=== PATIENT | female | born 1990 | race African-American/Black ===

== ENCOUNTER 2022-03-06 08:29 | Inpatient (IN) | payer BC, OTHER ==
[2022-03-06] MEDS ORDERED: SODIUM CHLORIDE 0.9% 1,000 ML IV STA ×2 (08:34→09:58)
[2022-03-06] MEDS ORDERED: NALOXONE 0.4 MG/ML 1 ML VIAL IVP STA ×3 (08:38→09:34)
[2022-03-06 08:40] LABS: Glucose,Whole Blood 92 mg/dL (75-99)
[2022-03-06 09:04] LABS: Basophils # (A) 0.1 k/uL (0-0.2); Basophils % (A) 1 %; Eosinophils # (A) 0.2 k/uL (0-0.7); Eosinophils % (A) 2 %; HCT 34.4 % (34.0-46.0); HGB 10.9 gm/dL (11.4-16.0); Lymphocytes # (A) 2.6 k/uL (1.0-4.8); Lymphocytes % (A) 36 %; MCH 31.9 pg (25.0-35.0); MCHC 31.7 g/dL (31.0-37.0); MCV 100.5 fL (80.0-100.0); Mean Platelet Volume 7.3; Monocytes # (A) 0.4 k/uL (0-1.0); Monocytes % (A) 5 %; Neutrophils # (A) 3.8 k/uL (1.3-7.7); Neutrophils % (A) 53 %; Platelet Count 421 k/uL (150-450); RBC 3.43 m/uL (3.80-5.40); RDW 12.4 % (11.5-15.5); WBC 7.2 k/uL (3.8-10.6)
[2022-03-06 09:06] LABS: INR 1.1 (<1.2); Prothrombin Time 11.9 sec (9.0-12.0)
[2022-03-06] MEDS ORDERED: NALOXONE 0.4 MG/ML 10 ML VIAL IVP STA ×3 (09:08→09:41)
--- NOTE | 2022-03-06 09:10 | CT ---
EXAMINATION TYPE: CT brain wo con DATE OF EXAM: 03/06/2022 COMPARISON: None HISTORY: overdose, altered mental status CT DLP: 1099.4 mGycm. Automated Exposure Control for Dose Reduction was Utilized. TECHNIQUE: CT scan of the head is performed without contrast. The ventricles, basal cisterns and sulci over convexities are within normal limits and there is no ma ss effect or shift of midline structures. No abnormal density is seen throughout the brain parenchyma and there is no acute intra or extra-axia l hemorrhage. The posterior fossa and the brainstem, fourth ventricle and cerebellar pontine angles appear grossly normal. The intraorbital contents appear normal and symmetric. There is a moderate mucous retention cyst left maxillary sinus indicating mild chronic sinusitis. The mastoid air cells are well aerated. The calvarium is intact. IMPRESSION: 1. No acute bleed or mass effect. 2. Chronic inflammatory change in the left maxillary sinus.
[2022-03-06 09:33] LABS: ALT 41 U/L (4-34); AST 24 U/L (14-36); Acetaminophen <10.0 ug/mL; African American GFR (CKD) >90 (>60 ml/min/1.73 sqM); Albumin 3.8 g/dL (3.5-5.0); Alcohol <10 mg/dL; Alkaline Phosphatase 52 U/L (38-126); Amylase 37 U/L (30-110); Anion Gap 8 mmol/L; Blood Urea Nitrogen 8 mg/dL (7-17); Calcium 9.2 mg/dL (8.4-10.2); Carbon Dioxide 27 mmol/L (22-30); Chloride 103 mmol/L (98-107); Glucose 87 mg/dL (74-99); Lipase 64 U/L (23-300); Non-African American GFR(CKD) >90 (>60 ml/min/1.73 sqM); Potassium 3.6 mmol/L (3.5-5.1); Salicylate <1.0 mg/dL; Sodium 138 mmol/L (137-145); Total Bilirubin 0.5 mg/dL (0.2-1.3); Total Protein 6.8 g/dL (6.3-8.2)
[2022-03-06 09:34] LABS: Appearance,Urine Clear (Clear); Bilirubin,Urine Negative (Negative); Blood,Urine Negative (Negative); Color,Urine Yellow; Glucose,Urine (UA) Negative (Negative); Ketones,Urine Negative (Negative); Leukocyte Esterase,Urine Negative (Negative); Nitrite,Urine Negative (Negative); PH, Urine 5.5 (5.0-8.0); Protein,Urine Negative (Negative); Specific Gravity,Urine 1.009 (1.001-1.035); Urobilinogen,Urine <2.0 mg/dL (<2.0)
--- NOTE | 2022-03-06 09:34 | XR ---
EXAMINATION TYPE: XR chest 1V portable DATE OF EXAM: 03/06/2022 COMPARISON: NONE HISTORY: Cough TECHNIQUE: Single frontal view of the chest is obtained. FINDINGS: There is no focal air space opacity, pleural effusion, or pneumothorax seen. The cardiac silhouette size is within normal limits. The osseous structures are intact. IMPRESSION: No acute process.
--- NOTE | 2022-03-06 09:37 | ED ---
General Adult HPI - General Chief complaint: Overdose Stated complaint: Overdose Time Seen by Provider: 03/06/22 08:34 Source: family, EMS, RN notes reviewed, old records reviewed Mode of arrival: EMS - History of Present Illness Initial comments: Patient is a 31-year-old female who presents to the emergency Department following an overdose. Patient was found unresponsive by family members and they called EMS. Sometime in the last 12 hours, as the patient has been alone over that period of time, she is taking 20 tabs of [place]-10's and 2 Xanax bars. Patient does have a history of drug abuse as well as history of suicide attempt in 2013 per family. She was prescribed the [place] due to recent right knee surgery. Unknown exact ingestion time. Patient is unable to provide history. Was prepped found sleepy, and relatively unresponsive snoring at home. EMS provided her with a total of 4 mg of IV Narcan with some improvement in mentation. Since her further evaluation at this time. - Related Data Allergies Allergy/AdvReac Type Severity Reaction Status Date / Time Unable to Assess Allergy Verified 03/06/22 08:59 Review of Systems ROS Statement: Those systems with pertinent positive or pertinent negative responses have been documented in the HPI. ROS Other: All systems not noted in ROS Statement are negative. General Exam - General Exam Comments Initial Comments: General: Patient is actively snoring, sleeping. No respiratory depression. Not awake. HEAD: Normal with no signs of head trauma. EYES: Pupils are pinpoint to 1 mm bilaterally with minimal reactivity to light. ENT: Hearing grossly intact, normal oropharynx. Protecting airway. RESPIRATORY: Clear breath sounds bilaterally. No wheezes, rales, or rhonchi. No respiratory distress. No hypoxia. C/V: Regular rate and rhythm. S1 and S2 auscultated, no edema, peripheral pulses 2+ and intact throughout ABD: Abd is soft, nontender, nondistended EXT: Status post right knee surgery with immobilizer in place. SKIN: No rashes or lesions observed on exposed skin. NEURO: Not alert or oriented. Sleepy. GCS of 9-10. Difficult to obtain secondary to patient's overdose. Course Vital Signs 03/06/22 03/06/22 03/06/22 08:31 08:34 08:39 Temperature 97.5 F L Pulse Rate 82 80 Respiratory 12 14 16 Rate Blood Pressure 118/86 118/86 O2 Sat by Pulse 100 Oximetry 03/06/22 03/06/22 03/06/22 09:00 09:15 09:30 Temperature Pulse Rate 89 Respiratory 16 18 Rate Blood Pressure 112/96 105/77 O2 Sat by Pulse Oximetry 03/06/22 03/06/22 03/06/22 09:45 10:00 10:30 Temperature Pulse Rate 89 89 Respiratory 18 16 16 Rate Blood Pressure 103/75 96/70 O2 Sat by Pulse 100 100 Oximetry 03/06/22 10:49 Temperature Pulse Rate Respiratory 18 Rate Blood Pressure O2 Sat by Pulse Oximetry Medical Decision Making - Medical Decision Making Patient was evaluated in the trauma bay. Based on the patient's presentation and physical exam, I believe she is sleeping likely secondary to her mixed overdose of benzodiazepines as well as opiate medication. Tylenol ingestion based on 20 tablets of [place] 10 does not exceed the toxic level the 150 mg/kg. However we will obtain a toxicology workup. Patient will be placed on suicide precautions with a sitter. CT brain will be obtained in addition to the urine studies. EKG will also be obtained. She'll be given a 1 L fluid bolus as well as started on a maintenance infusion. She'll be immediately dosed 2 mg of Narcan. There is minimal improvement in her second dose of 2 millions of IV Narcan was administered. Mental status remained GCS of 9-10, however patient was never apneic. Has adequate respirations. Remainder the vital signs are within normal limits and stable. We'll contact toxicology for further recommendations. Toxicology recommended increasing Narcan administration doses. Therefore patient was in this report millions at once with some improvement in terms of movement spontaneously. She'll be dosed an additional 6 mg to see if there is any further improvement. Lavatory studies returned and were remarkable for a negative Tylenol level. Alcohol level is negative. Salicylate level is negative. ALT is mildly elevated to 41. Blood glucose is 92. Patient is mildly anemic with a hemoglobin of 10.9. CT brain showed no acute intracranial process. Chest x-ray reveals no acute cardiopulmonary process. EKG shows no signs of acute ischemia with normal values for intervals. UDS is positive for opiates as well as benzodiazepines. Psychiatry was consulted due to the patient's history of suicide attempt to evaluate the patient upon awakening. Unknown if this was a suicide attempt. Suicide precautions were ordered. Sitter was ordered as well. On reevaluation, following multiple escalation doses of Narcan, she seemed to respond no different from 4 mg to 6. She becomes slightly more awake. The GCS remains approximately 10. This is likely poly-factorial, from benzodiazepines as well as opiates. We will start the patient on a Narcan drip and I spoke with the ICU attending, Dr. Chakraborty who accepted the patient ICU. Patient will be started on 3/4th dose of the dose to ellicit an improved response, which is 3mg/hr. vital signs remained stable and within normal limits throughout her stay. Oxygenation remains adequate. Patient never becomes apneic. I did speak with the patient's family member who is a employee at our hospital, who was in agreement with the admission and the plan. I spoke with the admitting team, city call Dr. Moya who accepted the patient. Patient was therefore admitted in serious condition.Patient continues to protect her airway throughout, never becomes apneic, never becomes hypoxic. Throughout her stay in the emergency department. - Lab Data Result diagrams: 03/06/22 08:47 03/06/22 08:47 Lab Results 03/06/22 03/06/22 03/06/22 Range/Units 08:32 08:47 08:47 WBC 7.2 (3.8-10.6) k/uL RBC 3.43 L (3.80-5.40) m/uL Hgb 10.9 L (11.4-16.0) gm/dL Hct 34.4 (34.0-46.0) % MCV 100.5 H (80.0-100.0) fL MCH 31.9 (25.0-35.0) pg MCHC 31.7 (31.0-37.0) g/dL RDW 12.4 (11.5-15.5) % Plt Count 421 (150-450) k/uL MPV 7.3 Neutrophils % 53 % Lymphocytes % 36 % Monocytes % 5 % Eosinophils % 2 % Basophils % 1 % Neutrophils # 3.8 (1.3-7.7) k/uL Lymphocytes # 2.6 (1.0-4.8) k/uL Monocytes # 0.4 (0-1.0) k/uL Eosinophils # 0.2 (0-0.7) k/uL Basophils # 0.1 (0-0.2) k/uL PT 11.9 (9.0-12.0) sec INR 1.1 (<1.2) Sodium (137-145) mmol/L Potassium (3.5-5.1) mmol/L Chloride (98-107) mmol/L Carbon Dioxide (22-30) mmol/L Anion Gap mmol/L BUN (7-17) mg/dL Creatinine (0.52-1.04) mg/dL Est GFR (CKD-EPI)AfAm (>60 ml/min/1.73 sqM) Est GFR (CKD-EPI)NonAf (>60 ml/min/1.73 sqM) Glucose (74-99) mg/dL POC Glucose (mg/dL) 92 (75-99) mg/dL POC Glu Professor Of Finance ID Jalen Elmore Plasma Lactic Acid Forrest (0.7-2.0) mmol/L Calcium (8.4-10.2) mg/dL Total Bilirubin (0.2-1.3) mg/dL AST (14-36) U/L ALT (4-34) U/L Alkaline Phosphatase (38-126) U/L Troponin I (0.000-0.034) ng/mL Total Protein (6.3-8.2) g/dL Albumin (3.5-5.0) g/dL Amylase (30-110) U/L Lipase (23-300) U/L Urine Color Urine Appearance (Clear) Urine pH (5.0-8.0) Ur Specific Platter (1.001-1.035) Urine Protein (Negative) Urine Glucose (UA) (Negative) Urine Ketones (Negative) Urine Blood (Negative) Urine Nitrite (Negative) Urine Bilirubin (Negative) Urine Urobilinogen (<2.0) mg/dL Ur Leukocyte Esterase (Negative) Urine HCG, Qual (Not Detectd) Salicylates mg/dL Urine Opiates Screen (NotDetected) Ur Oxycodone Screen (NotDetected) Urine Methadone Screen (NotDetected) Ur Propoxyphene Screen (NotDetected) Acetaminophen ug/mL Ur Barbiturates Screen (NotDetected) U Tricyclic Antidepress (NotDetected) Ur Phencyclidine Scrn (NotDetected) Ur Amphetamines Screen (NotDetected) U Methamphetamines Scrn (NotDetected) U Benzodiazepines Scrn (NotDetected) Urine Cocaine Screen (NotDetected) U Marijuana (THC) Screen (NotDetected) Serum Alcohol mg/dL 03/06/22 03/06/22 03/06/22 Range/Units 08:47 08:47 08:47 WBC (3.8-10.6) k/uL RBC (3.80-5.40) m/uL Hgb (11.4-16.0) gm/dL Hct (34.0-46.0) % MCV (80.0-100.0) fL MCH (25.0-35.0) pg MCHC (31.0-37.0) g/dL RDW (11.5-15.5) % Plt Count (150-450) k/uL MPV Neutrophils % % Lymphocytes % % Monocytes % % Eosinophils % % Basophils % % Neutrophils # (1.3-7.7) k/uL Lymphocytes # (1.0-4.8) k/uL Monocytes # (0-1.0) k/uL Eosinophils # (0-0.7) k/uL Basophils # (0-0.2) k/uL PT (9.0-12.0) sec INR (<1.2) Sodium 138 (137-145) mmol/L Potassium 3.6 (3.5-5.1) mmol/L Chloride 103 (98-107) mmol/L Carbon Dioxide 27 (22-30) mmol/L Anion Gap 8 mmol/L BUN 8 (7-17) mg/dL Creatinine 0.74 (0.52-1.04) mg/dL Est GFR (CKD-EPI)AfAm >90 (>60 ml/min/1.73 sqM) Est GFR (CKD-EPI)NonAf >90 (>60 ml/min/1.73 sqM) Glucose 87 (74-99) mg/dL POC Glucose (mg/dL) (75-99) mg/dL POC Glu Professor Of Finance ID Plasma Lactic Acid Forrest (0.7-2.0) mmol/L Calcium 9.2 (8.4-10.2) mg/dL Total Bilirubin 0.5 (0.2-1.3) mg/dL AST 24 (14-36) U/L ALT 41 H (4-34) U/L Alkaline Phosphatase 52 (38-126) U/L Troponin I (0.000-0.034) ng/mL Total Protein 6.8 (6.3-8.2) g/dL Albumin 3.8 (3.5-5.0) g/dL Amylase 37 (30-110) U/L Lipase 64 (23-300) U/L Urine Color Urine Appearance (Clear) Urine pH (5.0-8.0) Ur Specific Platter (1.001-1.035) Urine Protein (Negative) Urine Glucose (UA) (Negative) Urine Ketones (Negative) Urine Blood (Negative) Urine Nitrite (Negative) Urine Bilirubin (Negative) Urine Urobilinogen (<2.0) mg/dL Ur Leukocyte Esterase (Negative) Urine HCG, Qual Not Detected (Not Detectd) Salicylates <1.0 mg/dL Urine Opiates Screen Detected H (NotDetected) Ur Oxycodone Screen Not Detected (NotDetected) Urine Methadone Screen Not Detected (NotDetected) Ur Propoxyphene Screen Not Detected (NotDetected) Acetaminophen <10.0 ug/mL Ur Barbiturates Screen Not Detected (NotDetected) U Tricyclic Antidepress Not Detected (NotDetected) Ur Phencyclidine Scrn Not Detected (NotDetected) Ur Amphetamines Screen Not Detected (NotDetected) U Methamphetamines Scrn Not Detected (NotDetected) U Benzodiazepines Scrn Detected H (NotDetected) Urine Cocaine Screen Not Detected (NotDetected) U Marijuana (THC) Screen Not Detected (NotDetected) Serum Alcohol <10 mg/dL 03/06/22 03/06/22 03/06/22 Range/Units 08:47 08:47 08:47 WBC (3.8-10.6) k/uL RBC (3.80-5.40) m/uL Hgb (11.4-16.0) gm/dL Hct (34.0-46.0) % MCV (80.0-100.0) fL MCH (25.0-35.0) pg MCHC (31.0-37.0) g/dL RDW (11.5-15.5) % Plt Count (150-450) k/uL MPV Neutrophils % % Lymphocytes % % Monocytes % % Eosinophils % % Basophils % % Neutrophils # (1.3-7.7) k/uL Lymphocytes # (1.0-4.8) k/uL Monocytes # (0-1.0) k/uL Eosinophils # (0-0.7) k/uL Basophils # (0-0.2) k/uL PT (9.0-12.0) sec INR (<1.2) Sodium (137-145) mmol/L Potassium (3.5-5.1) mmol/L Chloride (98-107) mmol/L Carbon Dioxide (22-30) mmol/L Anion Gap mmol/L BUN (7-17) mg/dL Creatinine (0.52-1.04) mg/dL Est GFR (CKD-EPI)AfAm (>60 ml/min/1.73 sqM) Est GFR (CKD-EPI)NonAf (>60 ml/min/1.73 sqM) Glucose (74-99) mg/dL POC Glucose (mg/dL) (75-99) mg/dL POC Glu Professor Of Finance ID Plasma Lactic Acid Forrest 1.3 (0.7-2.0) mmol/L Calcium (8.4-10.2) mg/dL Total Bilirubin (0.2-1.3) mg/dL AST (14-36) U/L ALT (4-34) U/L Alkaline Phosphatase (38-126) U/L Troponin I <0.012 (0.000-0.034) ng/mL Total Protein (6.3-8.2) g/dL Albumin (3.5-5.0) g/dL Amylase (30-110) U/L Lipase (23-300) U/L Urine Color Yellow Urine Appearance Clear (Clear) Urine pH 5.5 (5.0-8.0) Ur Specific Platter 1.009 (1.001-1.035) Urine Protein Negative (Negative) Urine Glucose (UA) Negative (Negative) Urine Ketones Negative (Negative) Urine Blood Negative (Negative) Urine Nitrite Negative (Negative) Urine Bilirubin Negative (Negative) Urine Urobilinogen <2.0 (<2.0) mg/dL Ur Leukocyte Esterase Negative (Negative) Urine HCG, Qual (Not Detectd) Salicylates mg/dL Urine Opiates Screen (NotDetected) Ur Oxycodone Screen (NotDetected) Urine Methadone Screen (NotDetected) Ur Propoxyphene Screen (NotDetected) Acetaminophen ug/mL Ur Barbiturates Screen (NotDetected) U Tricyclic Antidepress (NotDetected) Ur Phencyclidine Scrn (NotDetected) Ur Amphetamines Screen (NotDetected) U Methamphetamines Scrn (NotDetected) U Benzodiazepines Scrn (NotDetected) Urine Cocaine Screen (NotDetected) U Marijuana (THC) Screen (NotDetected) Serum Alcohol mg/dL - EKG Data -: EKG Interpreted by Me EKG Comments: 12-lead Electrocardiogram Interpretation Note EKG was reviewed and interpreted by myself. 12-lead ECG performed at 0830 is interpreted by me as revealing incomplete right bundle branch block, otherwise normal sinus rhythm at a rate of 80 beats per minute. [place] is normal. MS interval is 139 ms, QRS duration is 90 ms, QTc is 429 ms.. There were no ST or T wave abnormalities to suggest myocardial ischemia or injury. R wave progression across the precordium was satisfactory. By my interpretation this EKG is non-diagnostic for acute ischemia. Critical Care Time Critical Care Time: Yes Total Critical Care Time: 35 Critical Care Time: Upon my evaluation, this patient had a high probability of imminent or life- threatening deterioration due to overdose, altered mental status, which required my direct attention, intervention, and personal management. I have personally provided 35 minutes of critical care time exclusive of time spent on separately billable procedures. Time includes review of laboratory data, radiology results, discussion with consultants, and monitoring for potential decompensation. Interventions were performed as documented in my note. Disposition Clinical Impression: Opiate overdose, Benzodiazepine overdose, History of suicide attempt Disposition: ADMITTED IP TO THIS HOSP Condition: Serious Time of Disposition: 10:30
[2022-03-06 09:48] LABS: Amphetamine Screen,Urine Not Detected (NotDetected); Barbiturate Screen,Urine Not Detected (NotDetected); Benzodiazepines Screen,Urine Detected (NotDetected); Cocaine Screen,Urine Not Detected (NotDetected); Methadone Screen, Urine Not Detected (NotDetected); Opiate Screen,Urine Detected (NotDetected); Oxycodone Screen, Urine Not Detected (NotDetected); Phencyclidine Screen,Urine Not Detected (NotDetected); Tricyclic Antidepressant,Urine Not Detected (NotDetected); Urn Cannabinoid Scrn Not Detected (NotDetected)
[2022-03-06] MEDS ORDERED: NALOXONE 0.4 MG/ML 1 ML VIAL IV PRN (10:30)
[2022-03-06] MEDS: NALOXONE (MDV) 2 MG in SODIUM CHLORIDE 0.9% 250 ML IV SCH ×19 (10:49→23:35)
--- NOTE | 2022-03-06 13:18 | P.CNPUL ---
History of Present Illness Consult date: 03/06/22 Requesting physician: Deacon Moya Reason for consult: other (Multiple drugs overdose) Chief complaint: Drug overdose History of present illness: This is a 31 -year-old female, recent history of surgery on her right knee/patella done in a different institution. Patient had prescription for No rco and Xanax to take for pain control after her surgery. Patient is known to have history of depression, and she had previous suicidal attempts. Apparently the patient was found by family members unresponsive, EMS was notified, patient was brought into the ER, apparently she took about 20 tablets of [place] 10/325, and she took few Xanax pills. Patient herself could not provide any history, she seems to be quite sleepy, but she is arousable, but does not volunteer any information. Patient received Narcan given to her by EMS for milligrams IV push, and there was improvement in her mentation. In the ER the patient received few doses of Narcan, finally the patient was placed on a Narcan drip, and transferred to the ICU. Again no history could be obtained from the patient. Patient is sedated, but arousable and does not volunteer and does not cooperate after being aroused, she seems to be bothered by waking her up. Apparently the patient had previous history of suicidal attempt in 2013. Her drug screen was positive for opiates, benzodiazepines, and negative for everything else including acetaminophen, and salicylate. Review of Systems ROS unobtainable: due to mental status Medications and Allergies Home Medications Medication Instructions Recorded Confirmed Type Aspirin 325 mg PO DAILY 03/06/22 03/06/22 History HYDROcodone/APAP 10-325MG [[place] 1 tab PO Q4H PRN 03/06/22 03/06/22 History 10-325] Ibuprofen 800 mg PO Q8H 03/06/22 03/06/22 History Ondansetron [Zofran ODT] 4 mg PO Q8HR 03/06/22 03/06/22 History Sennosides/Docusate Sodium [Senna 1 each PO DAILY 03/06/22 03/06/22 History Plus 8.6-50 mg Tablet] metroNIDAZOLE [Flagyl] 500 mg PO BID 03/06/22 03/06/22 History Allergies Allergy/AdvReac Type Severity Reaction Status Date / Time No Known Allergies Allergy Verified 03/06/22 13:00 Physical Exam Vitals: Vital Signs Temp Pulse Resp BP Pulse Ox 03/06/22 13:00 76 11 L 109/76 100 03/06/22 12:51 14 03/06/22 12:30 87 13 102/75 99 03/06/22 12:12 13 03/06/22 12:11 12 03/06/22 12:00 85 14 100/78 99 03/06/22 11:30 80 19 107/82 99 03/06/22 11:00 97.8 F 85 13 94/74 100 03/06/22 10:49 18 03/06/22 10:30 89 16 96/70 100 03/06/22 10:00 89 16 103/75 100 03/06/22 09:45 18 03/06/22 09:30 105/77 03/06/22 09:15 18 03/06/22 09:00 89 16 112/96 03/06/22 08:39 80 16 118/86 03/06/22 08:34 14 03/06/22 08:31 97.5 F L 82 12 118/86 100 Intake and Output 03/05/22 03/06/22 03/06/22 22:59 06:59 14:59 Intake Total 600.00 Output Total 1875 Balance -1275.00 Intake: Intake, IV Titration 600.00 Amount Naloxone (Mdv) 2 mg In 500.00 Sodium Chloride 0.9% 250 ml @ 3 MG/HR 375 mls/hr IV .Q40M MAISHA Rx#: [id number] Sodium Chloride 0.9% 1, 100 000 ml @ 100 mls/hr IV . Q10H STA Rx#:[id number] Output: Urine 1875 Uretheral (Fowler) 800 Other: Voiding Method Indwelling Catheter Weight 58.967 kg Physical Exam General: sleeping. No respiratory depression. Arousable with any painful stimuli. HEAD: Normal with no signs of head trauma. EYES: Pupils are pinpoint to 1 mm bilaterally with minimal reactivity to light. ENT: Hearing grossly intact, normal oropharynx. Protecting airway. RESPIRATORY: Symmetrical chest expansion, clear throughout no crackles or rhonchi or wheezes. C/V: Normal S1 and S2, no S3 gallop. ABD: Soft nontender no megaly no rebound no guarding. EXT: Right knee immobilizer is noted, apparently patient had recent patellar surgery. SKIN: No rashes. NEURO: Not alert or oriented. Sleepy. GCS of 9-10. Difficult to obtain secondary to patient's overdose. Results - Laboratory Findings CBC and BMP: 03/06/22 08:47 03/06/22 08:47 PT/INR, D-dimer PT 11.9 sec (9.0-12.0) 03/06/22 08:47 INR 1.1 (<1.2) 03/06/22 08:47 Abnormal lab findings: Abnormal Labs 03/06/22 03/06/22 03/06/22 08:47 08:47 08:47 RBC 3.43 L Hgb 10.9 L MCV 100.5 H ALT 41 H Urine Opiates Screen Detected H U Benzodiazepines Scrn Detected H - Diagnostic Findings Chest x-ray: image reviewed (Chest x-ray showed no evidence of active disease. No evidence of pneumonia.) Additional studies: CT of the brain showed chronic inflammatory change and left maxillary sinus otherwise negative Assessment and Plan Assessment: Impression: Multiple drug overdose, patient overdosed on hydrocodone and on Xanax. Drug screen positive for opiates and benzodiazepine. History of depression and suicidal attempts. Recommendation: Admit to ICU Monitor closely and continue Narcan drip for now. Psychiatric consultation. Close monitoring of her pulmonary status, if patient shows any signs of deteri oration, recommend intubating the patient. We'll continue to follow. Time with Patient: Greater than 30
--- NOTE | 2022-03-06 16:57 | P.HPIM ---
History of Present Illness H&P Date: 03/06/22 Chief Complaint: Drug overdose 31-year-old female who presents to the emergency Department following an overdose. Patient was found unresponsive by family members and they called EMS. Patient unable to provide any history so all of the history is obtained from the chart Sometime in the last 12 hours, as the patient has been alone over that period of time, she is taking 20 tabs of [place]-10's and 2 Xanax bars. Patient does have a history of drug abuse as well as history of suicide attempt in 2013 per family. She was prescribed the [place] due to recent right knee surgery. Unknown exact ingestion time. Patient is unable to provide history. Was prepped found sleepy , and relatively unresponsive snoring at home. EMS provided her with a total of 4 mg of IV Narcan with some improvement in mentation. Since her further evaluation at this time. In the ER the patient received few doses of Narcan, finally the patient was placed on a Narcan drip, and transferred to the ICU. Review of Systems ROS unobtainable: due to mental status Medications and Allergies Home Medications Medication Instructions Recorded Confirmed Type Aspirin 325 mg PO DAILY 03/06/22 03/06/22 History HYDROcodone/APAP 10-325MG [[place] 1 tab PO Q4H PRN 03/06/22 03/06/22 History 10-325] Ibuprofen 800 mg PO Q8H 03/06/22 03/06/22 History Ondansetron [Zofran ODT] 4 mg PO Q8HR 03/06/22 03/06/22 History Sennosides/Docusate Sodium [Senna 1 each PO DAILY 03/06/22 03/06/22 History Plus 8.6-50 mg Tablet] metroNIDAZOLE [Flagyl] 500 mg PO BID 03/06/22 03/06/22 History Allergies Allergy/AdvReac Type Severity Reaction Status Date / Time No Known Allergies Allergy Verified 03/06/22 13:00 Physical Exam Vitals: Vital Signs Temp Pulse Resp BP Pulse Ox 03/06/22 09:45 18 03/06/22 09:15 18 03/06/22 09:00 89 16 112/96 03/06/22 08:39 80 16 118/86 03/06/22 08:34 14 03/06/22 08:31 97.5 F L 82 12 118/86 100 Intake and Output 03/05/22 03/06/22 03/06/22 22:59 06:59 14:59 Output Total 800 Balance -800 Output: Urine 800 Uretheral (Fowler) 800 Other: Weight 58.967 kg General: sleeping. No respiratory depression. Arousable with any painful stimuli. HEAD: Normal with no signs of head trauma. EYES: Pupils are pinpoint to 1 mm bilaterally with minimal reactivity to light. ENT: Hearing grossly intact, normal oropharynx. Protecting airway. RESPIRATORY: Symmetrical chest expansion, clear throughout no crackles or rhonchi or wheezes. C/V: Normal S1 and S2, no S3 gallop. ABD: Soft nontender no megaly no rebound no guarding. EXT: Right knee immobilizer is noted, apparently patient had recent patellar surgery. SKIN: No rashes. Results CBC & Chem 7: 03/06/22 08:47 03/06/22 08:47 Labs: Abnormal Lab Results - Last 24 Hours (Table) 03/06/22 03/06/22 03/06/22 Range/Units 08:47 08:47 08:47 RBC 3.43 L (3.80-5.40) m/uL Hgb 10.9 L (11.4-16.0) gm/dL MCV 100.5 H (80.0-100.0) fL ALT 41 H (4-34) U/L Urine Opiates Screen Detected H (NotDetected) U Benzodiazepines Scrn Detected H (NotDetected) Assessment and Plan Assessment: 1. Multiple drug overdose; likely hydrocodone and Xanax - Drug screen completed in ED positive for opiates and benzodiazepines - Patient remains on IV Narcan infusion 2. Altered mental status; related to drug overdose - CT of the brain shows chronic inflammatory changes in the left maxillary sinus; no acute changes - Patient has been admitted to ICU with plans to monitor her checks and continue with IV Narcan with plans to titrate as needed 3. History of depression and suicidal attempts; psych consultation in place DVT prophylaxis; SCDs CODE STATUS; full code
--- NOTE | 2022-03-06 18:55 | P.CN ---
Psychiatric Consult - . Consult date: 03/06/22 Consult:: IDENTIFYING DATA: This patient is a 31 yo female who was admitted to the medical unit on 03/06/2022 from the ER after being found unresponsive by family members following suspected opioid and benzodiazepine overdose. REASON FOR REFERRAL: Psychiatry was consulted for possible suicide attempts, overdose. History of attempt. HISTORY OF PRESENT ILLNESS: The patient presented to the hospital on 03/06/2022 after family members found patient unresponsive and called EMS. Patient had reportedly been alone in the 12 hours prior to being found and was suspected of taking 20 tabs of Raymond 10 mg in to Sulia bars. Per family, patient has a history of drug abuse as well as a history of suicide attempt in 2013. She was recently prescribed Raymond due to recent right knee surgery. EMS provided patient with a total of 4 mg of IV Narcan with some improvement in mentation. UDS in the ER was positive for opiates and benzodiazepines. Tylenol level blood alcohol and salicylate level were unremarkable. CT head showed no acute intra cranial process. She received an additional 4 mg of IV Narcan in the ER with minimal improvement, followed by another 4 mg of IV Narcan, and again another 6 mg of IV Narcan with limited improvement, likely due to the combined effect of benzodiazepines and opiates. She was started on a Narcan drip and transferred to the ICU. On my evaluation today, patient is found asleep in bed. She awakens to voice after multiple attempts and is sleepy. She is able to maintain wakefulness after multiple attempts. She is oriented to person, place (knows she is in a hospital, initially states she is at [place] and corrected to [place]), and time. She minimizes the events leading up to her admission. She denies she is here because of a suicide attempt, however she appears depressed and begins to c ry as she states she feels that she is a burden on her family. She states she is stuck in [place]. She states she lives in [place], and came to [place] on February 12 to visit her mother and her mother's side of the family. She states she is shattered her knee, underwent right knee surgery and was prescribed Raymond about 2 weeks ago. He appears to minimize her Raymond use. She initially reports she takes her Raymond as prescribed as 1 pill every 4 hours. She later reports she was having difficulty sleeping and states she took 2 of the 10 mg Raymond last night. She appears to be utilizing the defense mechanisms of denial and minimization. She admits her mood is sad, and is tearful during the assessment, however she then minimizes her depressive symptoms. She reports difficulty sleeping without the pain medications. Her responses are often vague. She reports she was working at [employer] in [place] but does not believe she has this job any longer. She reports she was living alone. At this time patient denies any suicidal or homical ideations, intent or plan; however she also appears to be a poor historian and appears to be minimizing her symptoms. Patient denies any auditory or visual hallucinations. She denies any paranoia or delusions. Nurse at bedside reports that patient's mother called the unit expressing concern that patient is suicidal but will deny it. Family believes this was an intentional overdose. Nurse also reports that patient's family reported concern that patient has been overusing her Raymond, and has traded her Raymond for Xanax recently. With patient's permission, I contacted her mother Maisha Rush [phone]. Mother reports patient has been addicted to Xanax. Mother reports in 8.5 hours when he she was at work last night, the patient took 19 Raymond 10 mg tabs and a bar of 2 mg Xanax in the 8.5 hours mother was gone at work. Mother reports patient has been making suicidal statements over the past month. "I just don't know if it's worth living anymore because everything bad always happens to me". Three days ago, patient told mother "I just don't have any friends, what's life without people in your life, what is life worth living for if you don't have any friends." Mother reports patient has been eluding to not wanting to live. Mother reports patient will say "life isn't worth living." Mother believes this was a suicide attempt and that patient will deny it, and believes patient needs to be admitted to an inpatient psychiatric unit for mental health treatment. Mother reports patient has been drinking heavily and has been drinking Hen[place]. PAST PSYCHIATRIC HISTORY: Patient has a history of depression, anxiety, substance abuse. She was previously hospitalized in 2013 for a suicide attempt on Tylenol and heroin. Patient reports she was prescribed Xanax, but mother reports this is bought from the street. Patient denies any psychiatric outpatient follow-up. PAST MEDICAL HISTORY: Patient denies. ALLERGIES: as per EMR. CHEMICAL DEPENDENCY HISTORY: She abuses Xanax currently. She has abused heroin in the past (snorting). She is also currently abusing Raymond and alcohol (Henessey). FAMILY PSYCHIATRIC/SUBSTANCE USE HISTORY: denies SOCIAL HISTORY: Patient was born and raised in [place], [place]. She lives in [place], [place] (father's family is from there). Her father when he was 26 years old when patient was 5 years old. She was recently fired from her job at [employer] in [place]. Mother reports she has lost her drivers license twice because if DUIs. She currently does not have a drivers license. MENTAL STATUS EXAM: General Appearance: Patient appears to be stated age. She is sleepy but is able to maintain wakefulness after multiple attempts. Patient appears to have [fair] hygiene and grooming wearing hospital gown with [fair] eye contact. Behavior: [Patient is calmly lying in bed without any agitated behavior.] Speech: Patient's speech is fluent and nonpressured. Mood/Affect: Patient reports their mood is "[depressed]", affect is congruent Suicidality/Homicidality: Patient denies having any suicidal or homicidal ideation intent or plan. Perceptions: Patient denies any visual hallucinations [and denies any auditory hallucinations] Though content/process: There is no evidence of any delusional thought content and thought process is linear and goal-directed. Memory and concentration: AOX3, grossly intact for the purposes of this session. Can spell "WORLD" backwards Judgment and insight: Poor IMPRESSIONS: Major depressive disorder, recurrent/severe, without psychotic features High suspicion for suicide attempt by multi-drug ingestion Opioid use disorder Benzodiazepine use disorder Alcohol use disorder PLAN: -At this time patient DOES meet criteria for inpatient psychiatric admission. -Patient may NOT leave AMA at this time since she will need inpatient psychiatric admission once medically stable. Patient will need a petition and certification if attempting to leave AMA. -Continue suicide precautions with one-to-one staff to monitor for safety at bedside. -Would recommend the following medication changes/additions: -Monitor for signs of benzodiazepine withdrawal and alcohol withdrawal and initiate CIWA protocol with PRN Ativan if needed. Continue to monitor vital signs. -When medically stable, patient is eligible for transfer to a psych bed when available. -Communicated plan to patient's nurse -Will continue to follow along -Please contact with any questions. 03/06/22 15:43 03/06/22 18:04
[2022-03-06] MEDS ORDERED: MELATONIN 5 MG TABLET PO PRN (22:08)
[2022-03-06] MEDS: KETOROLAC 15 MG/ML 1 ML VIAL IVP PRN (22:37)
[2022-03-06] MEDS: NICOTINE 21MG/24HR PATCH TRANSDERM SCH (23:34)
[2022-03-07] MEDS: NALOXONE (MDV) 2 MG in SODIUM CHLORIDE 0.9% 250 ML IV SCH ×6 (01:42→05:38)
[2022-03-07 06:37] LABS: Glucose,Whole Blood 103 mg/dL (75-99)
[2022-03-07 06:52] LABS: Basophils % (A) 0 %; Eosinophils # (A) 0.2 k/uL (0-0.7); Eosinophils % (A) 2 %; HCT 34.9 % (34.0-46.0); HGB 11.1 gm/dL (11.4-16.0); Lymphocytes # (A) 1.9 k/uL (1.0-4.8); Lymphocytes % (A) 23 %; MCH 31.9 pg (25.0-35.0); MCHC 31.8 g/dL (31.0-37.0); MCV 100.6 fL (80.0-100.0); Mean Platelet Volume 7.3; Monocytes # (A) 0.3 k/uL (0-1.0); Monocytes % (A) 4 %; Neutrophils # (A) 5.6 k/uL (1.3-7.7); Neutrophils % (A) 69 %; Platelet Count 402 k/uL (150-450); RBC 3.47 m/uL (3.80-5.40); RDW 12.5 % (11.5-15.5); WBC 8.1 k/uL (3.8-10.6)
[2022-03-07 07:03] LABS: ALT 30 U/L (4-34); AST 21 U/L (14-36); African American GFR (CKD) >90 (>60 ml/min/1.73 sqM); Albumin 3.2 g/dL (3.5-5.0); Alkaline Phosphatase 50 U/L (38-126); Anion Gap 5 mmol/L; Blood Urea Nitrogen 7 mg/dL (7-17); Calcium 8.8 mg/dL (8.4-10.2); Carbon Dioxide 25 mmol/L (22-30); Chloride 110 mmol/L (98-107); Glucose 94 mg/dL (74-99); Non-African American GFR(CKD) >90 (>60 ml/min/1.73 sqM); Potassium 4.4 mmol/L (3.5-5.1); Sodium 140 mmol/L (137-145); Total Bilirubin 0.4 mg/dL (0.2-1.3); Total Protein 5.9 g/dL (6.3-8.2)
[2022-03-07] MEDS: NICOTINE 21MG/24HR PATCH TRANSDERM SCH (08:30)
[2022-03-07] MEDS: KETOROLAC 15 MG/ML 1 ML VIAL IVP PRN (08:30)
[2022-03-07 09:18] VITALS: BP 124/83; RESP 16; TEMP 98.8
--- NOTE | 2022-03-07 12:26 | P.PN ---
Subjective Progress Note Date: 03/07/22 Principal diagnosis: Opiates and benzodiazepines overdose This is a 31 -year-old female, recent history of surgery on her right knee/patella done in a different institution. Patient had prescription for [place] and Xanax to take for pain control after her surgery. Patient is known to have history of depression, and she had previous suicidal attempts. Apparently the patient was found by family members unresponsive, EMS was notified, patient was brought into the ER, apparently she took about 20 tablets of [place] 10/325, and she took few Xanax pills. Patient herself could not provide any history, she seems to be quite sleepy, but she is arousable, but does not volunteer any information. Patient received Narcan given to her by EMS for milligrams IV push, and there was improvement in her mentation. In the ER the patient received few doses of Narcan, finally the patient was placed on a Narcan drip, and transferred to the ICU. Again no history could be obtained from the patient. Patient is sedated, but arousable and does not volunteer and does not cooperate after being aroused, she seems to be bothered by waking her up. Apparently the patient had previous history of suicidal attempt in 2013. Her drug screen was positive for opiates, benzodiazepines, and negative for everything else including acetaminophen, and salicylate. Reevaluated today on 03/07/2022, patient is in the ICU, she is off her Narcan drip, patient is awake, not in any distress, patient seems to be very appropriate, she has mostly pain in the patellar area secondary to trauma to the knee that she sustained recently, and she had surgery done at [facility]. Patient was seen by psychiatry, and recommending psychiatric admission, medically, I will clear the patient to be transferred out of the ICU, and she could possibly be transferred to the psychiatric floor or at least to the medical floor for the next 24 hours, and possibly tomorrow she could go to the psychiatric floor. In the meantime we'll continue suicidal precautions, and continue a sitter at bedside watching the patient. All labs done this morning were basically unremarkable. Objective - Vital Signs Vital signs: Vital Signs Temp 98.8 F 03/07/22 08:00 Pulse 90 03/07/22 11:00 Resp 16 03/07/22 09:00 BP 124/83 03/07/22 08:00 Pulse Ox 97 03/07/22 11:00 Intake & Output 03/06/22 03/07/22 03/07/22 18:59 06:59 18:59 Intake Total 2312.50 540 120 Output Total 2330 645 440 Balance -17.50 -105 -320 Weight 58.967 kg 66.7 kg Intake: Intake, IV Titration 2312.50 540 120 Amount Naloxone (Mdv) 2 mg In 1612.50 250 Sodium Chloride 0.9% 250 ml @ 3 MG/HR 375 mls/hr IV .Q40M MAISHA Rx#: [id number] Sodium Chloride 0.9% 1, 700 290 120 000 ml @ 100 mls/hr IV . Q10H STA Rx#:[id number] Output: Urine 2330 645 440 Uretheral ([place]) 800 Other: Voiding Method Indwelling Catheter Indwelling Catheter Toilet # Bowel Movements 1 - Exam Physical Exam: Revealed a 51-year-old female in no distress. Head: Atraumatic normocephalic. HEENT:[Neck is supple.] [No neck masses.] [No thyromegaly.] [No JVD.] Chest: [Clear throughout, no crackles, no rhonchi, no wheezes.] Cardiac Exam: [Normal S1 and S2, no S3 gallop, no murmur.] Abdomen: [Soft, nontender, no megaly, no rebound, no guarding, normal bowel sounds.] Extremities: [No clubbing, no edema, no cyanosis.] Right knee remains immobi lized because of recent patellar fracture. Neurological Exam: [No focal neurologic deficit.] Psychiatric: Normal mood affect and normal mental status examination. Skin: No rashes. - Labs CBC & Chem 7: 03/07/22 06:34 03/07/22 06:34 Labs: Abnormal Lab Results - Last 24 Hours (Table) 03/07/22 03/07/22 03/07/22 Range/Units 06:34 06:34 06:35 RBC 3.47 L (3.80-5.40) m/uL Hgb 11.1 L (11.4-16.0) gm/dL MCV 100.6 H (80.0-100.0) fL Chloride 110 H (98-107) mmol/L POC Glucose (mg/dL) 103 H (75-99) mg/dL Total Protein 5.9 L (6.3-8.2) g/dL Albumin 3.2 L (3.5-5.0) g/dL Assessment and Plan Assessment: Impression: opiates and benzodiazepine. Overdose. History of depression and suicidal attempts. Recommendation: Will clear the patient to transfer out of the ICU to regular medical floor. Continue sitter at bedside. Psychiatric note was appreciated, and the patient could possibly transferred to psychiatry in the next 24 hours. We will see the patient on when necessary basis when she is on regular medical floor Time with Patient: Less than 30
[2022-03-07] MEDS ORDERED: THIAMINE 100 MG/ML 2 ML VIAL IM STA (12:41)
[2022-03-07] MEDS ORDERED: LORazepam 2 MG/ML INJ IV PRN ×3 (12:41)
--- NOTE | 2022-03-07 13:04 | P.PN ---
Subjective Progress Note Date: 03/07/22 Principal diagnosis: Psychiatry consult follow-up: Interval history: Patient was seen on the medical floor and follow-up for psychiatry consult. She is more alert today and oriented to person place and time. She continues to be superficially cooperative, at times vague and evasive. She admits to her overdose as being a suicide attempt but questions "I don't know why I tried to kill myself? I don't know why I would take that many pills?" She denies cur rent suicidal ideation, plan or intent, but but also seems to minimize her symptoms. She reports she has taken antidepressants in the past but does not recall their names. She admits today to heavy alcohol use, reports her last week of alcohol was reportedly last Tuesday. She reports she normally drinks one bottle of red wine daily, and states it helps her sleep. She also reports to taking 2 blue balls of Xanax per day. She is willing to sign in voluntarily for inpatient psychiatric treatment. She has spoken to her family including her mother and both grandmothers. Mental status exam: General Appearance: Patient appears to be stated age, has multiple piercings on ears and chest. She is alert, directable, and superficially cooperative. Behavior: No agitated behavior. Patient is calm and directable. Speech: Patient's speech is fluent and nonpressured. Mood/Affect: Mood is "I'm ok", affect is incongruent and depressed. Suicidality/Homicidality: Status post suicide attempt by multidrug ingestion. She denies homicidal ideation intent or plan. Perceptions: Patient denies any auditory or visual hallucinations. Though content/process: There is no evidence of any delusional thought content and thought process is linear and goal-directed. Memory and concentration: AOX3, grossly intact for the purposes of this session Judgment and insight: Poor Vital signs 03/07/22 03/07/22 03/07/22 02:00 03:00 04:00 Temperature 98.4 F Pulse Rate 107 H 93 91 Respiratory 16 17 14 Rate Blood Pressure 119/80 123/84 123/84 O2 Sat by Pulse 100 97 100 Oximetry 03/07/22 03/07/22 03/07/22 05:00 06:00 07:00 Temperature Pulse Rate 89 90 105 H Respiratory 14 13 13 Rate Blood Pressure 115/85 107/72 107/72 O2 Sat by Pulse 100 99 98 Oximetry 03/07/22 03/07/22 03/07/22 08:00 09:00 10:00 Temperature 98.8 F Pulse Rate 108 H 105 H 106 H Respiratory 10 L 16 Rate Blood Pressure 124/83 O2 Sat by Pulse 100 99 Oximetry 03/07/22 11:00 Temperature Pulse Rate 90 Respiratory Rate Blood Pressure O2 Sat by Pulse 97 Oximetry Assessment/Plan: Major depressive disorder, recurrent/severe, without psychotic features Suicide attempt by multi-drug ingestion Alcohol use disorder with withdrawal Benzodiazepine use disorder with withdrawal Opioid use disorder -Start [facility] for alcohol/benzodiazepine withdrawl, plus thiamine supplementation. -At this time patient DOES meet criteria for inpatient psychiatric admission. -Patient may NOT leave AMA at this time since she will need inpatient psychiatric admission once bed is available. Patient will need a petition and certification if attempting to leave AMA. -Continue suicide precautions with one-to-one staff to monitor for safety at bedside. -I have discussed antidepressants with patient today, but will defer antidepressant choice to the primary psychiatric team once patient arrives on the mental health unit. Objective - Vital Signs Vital signs: Vital Signs Temp 98.8 F 03/07/22 08:00 Pulse 90 03/07/22 11:00 Resp 16 03/07/22 09:00 BP 124/83 03/07/22 08:00 Pulse Ox 97 03/07/22 11:00 Intake & Output 03/06/22 03/07/22 03/07/22 18:59 06:59 18:59 Intake Total 2312.50 540 120 Output Total 2330 645 440 Balance -17.50 -105 -320 Weight 58.967 kg 66.7 kg Intake: Intake, IV Titration 2312.50 540 120 Amount Naloxone (Mdv) 2 mg In 1612.50 250 Sodium Chloride 0.9% 250 ml @ 3 MG/HR 375 mls/hr IV .Q40M MAISHA Rx#: [id number] Sodium Chloride 0.9% 1, 700 290 120 000 ml @ 100 mls/hr IV . Q10H STA Rx#:[id number] Output: Urine 2330 645 440 Uretheral ([place]owler) 800 Other: Voiding Method Indwelling Catheter Indwelling Catheter Toilet # Bowel Movements 1 - Labs CBC & Chem 7: 03/07/22 06:34 03/07/22 06:34 Labs: Abnormal Lab Results - Last 24 Hours (Table) 03/07/22 03/07/22 03/07/22 Range/Units 06:34 06:34 06:35 RBC 3.47 L (3.80-5.40) m/uL Hgb 11.1 L (11.4-16.0) gm/dL MCV 100.6 H (80.0-100.0) fL Chloride 110 H (98-107) mmol/L POC Glucose (mg/dL) 103 H (75-99) mg/dL Total Protein 5.9 L (6.3-8.2) g/dL Albumin 3.2 L (3.5-5.0) g/dL
[2022-03-07 13:18] VITALS: PULSE 99
[2022-03-07] MEDS ORDERED: THIAMINE 100 MG TAB PO SCH (17:30)
== END 2022-03-07 13:21 | DRG 918 ==
LOC: EC 08:29 → 2SICU 10:33
PROVIDERS: ADMIT Internal Medicine; ATTEND Internal Medicine
PROC: HZ2ZZZZ Detoxification Services for Substance Abuse Treatment (ICD-10-PCS; principal; 2022-03-06)
DX: T40.2X2A Poisoning by other opioids, intentional self-harm, initial encounter (principal); F33.9 Major depressive disorder, recurrent, unspecified; F10.139 Alcohol abuse with withdrawal, unspecified; T42.4X2A Poisoning by benzodiazepines, intentional self-harm, initial encounter; F11.10 Opioid abuse, uncomplicated; D64.9 Anemia, unspecified; F13.10 Sedative, hypnotic or anxiolytic abuse, uncomplicated; Z79.82 Long term (current) use of aspirin; Z91.51 Personal history of suicidal behavior
CPT/HCPCS: 36415; 51702; 70450; 71045; 80053; 80143; 80179; 80306; 80320; 81003; 81025; 82150; 83605; 83690; 84484; 85025; 85610; 93005; 96361; 96374; 96376; 99291

== ENCOUNTER 2022-03-07 13:37 | Inpatient (IN) | payer MEDICAID ==
[2022-03-07] MEDS ORDERED: LORazepam 1 MG TAB PO PRN ×2 (13:42)
[2022-03-07] MEDS ORDERED: HALOPERIDOL LACTATE 5 MG/ML 1 ML VIAL IM PRN (13:42)
[2022-03-07] MEDS ORDERED: MAGNESIUM HYDROXIDE 2,400 MG/10 ML CUP PO PRN (13:42)
[2022-03-07] MEDS ORDERED: MAG HYDROX/AL HYDROX/SIMETH 30 ML CUP PO PRN (13:42)
[2022-03-07] MEDS: ACETAMINOPHEN TAB 325 MG TAB PO PRN (15:32)
[2022-03-07] MEDS: diazePAM 5 MG TAB PO SCH ×2 (15:32→21:39)
[2022-03-07] MEDS: chlordiazePOXIDE 25 MG CAP PO SCH ×2 (15:32→21:38)
[2022-03-07] MEDS: ETODOLAC 400 MG TAB PO SCH (21:38)
[2022-03-07] MEDS ORDERED: diphenhydrAMINE 50 MG CAP PO STA (23:31)
[2022-03-08] MEDS ORDERED: diphenhydrAMINE 50 MG CAP PO STA (00:16)
[2022-03-08] MEDS: chlordiazePOXIDE 25 MG CAP PO SCH ×3 (08:31→21:10)
[2022-03-08] MEDS: diazePAM 5 MG TAB PO SCH ×3 (08:31→21:10)
[2022-03-08] MEDS: FOLIC ACID 1 MG TAB PO SCH (08:32)
[2022-03-08] MEDS: THIAMINE 100 MG TAB PO SCH (08:32)
[2022-03-08] MEDS: ACETAMINOPHEN TAB 325 MG TAB PO PRN ×2 (08:32→18:37)
[2022-03-08] MEDS: ETODOLAC 400 MG TAB PO SCH ×2 (08:32→20:24)
[2022-03-08] MEDS: MULTIVITAMINS, THERA 1 EACH TAB PO SCH (08:32)
[2022-03-08] MEDS ORDERED: NICOTINE 14MG/24HR PATCH TRANSDERM SCH (09:00)
[2022-03-08 09:25] LABS: Chol/HDL Ratio 3.85 Ratio; LDL Cholesterol,Calculated 93.6 mg/dL (0.0-131.0); VLDL Calculation 18.16 mg/dL (5.00-40.00)
--- NOTE | 2022-03-08 09:49 | P.HP ---
Psychiatric H&P - . H&P Date: 03/08/22 History & Physical: Allergies Allergy/AdvReac Type Severity Reaction Status Date / Time No Known Allergies Allergy Verified 03/07/22 19:23 Vital Signs Temp 98.3 F 03/08/22 06:44 Pulse 98 03/08/22 08:34 Resp 16 03/08/22 08:34 BP 123/81 03/08/22 08:34 Pulse Ox 96 03/08/22 08:34 Intake & Output 03/07/22 03/08/22 03/08/22 18:59 06:59 18:59 Weight 66.7 kg Laboratory Last Values Estimated Ave Glu mg/dL 116 03/07/22 06:34 Hemoglobin A1c 5.7 % (0.0-6.0) 03/07/22 06:34 Triglycerides 90.80 mg/dL (0.00-149.00) 03/07/22 06:34 Cholesterol 151.00 mg/dL (0.00-200.00) 03/07/22 06:34 LDL Cholesterol, Calc 93.6 mg/dL (0.0-131.0) 03/07/22 06:34 VLDL Cholesterol, Calc 18.16 mg/dL (5.00-40.00) 03/07/22 06:34 HDL Cholesterol 39.20 mg/dL (40.00-60.00) L 03/07/22 06:34 Cholesterol/HDL Ratio 3.85 Ratio 03/07/22 06:34 TSH 0.659 mIU/L (0.465-4.680) 03/07/22 06:34 03/08/22 09:42 Psychiatric evaluation This is a psychiatric evaluation on this 31-year-old female was hospitalized after an overdose of 20 tablets of [place] and unknown amount of Xanax Patient reports that she does not know as to why she took it and states that she was having a good day She states that she is visiting here from [place] to attend a cousin's marriage and is now stuck here away from home Patient states that she has no idea as to why she did it She states that she is in a relationship at this time and is single She states that she drinks a bottle of wine every day She also recently had a fall fracturing her right patella and is in a splint 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 Past history personal and social history Patient reports that she has a history of previous hospitalization in 2014 She states that she had a reason for that overdose when she had a argument with her mother at that time She states that she admits some counseling and treatment for a while but she did not feel that she needed any psychiatric help and has not had any follow-up or treatment since 2013 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 Affect at this time appears to be flat Thought processes are goal-directed sequential Patient remains very vague and superficial Content of thought is difficult to assess due to impoverished thought processes Formal and operational judgment are concrete Insight into her problem is poor Problem-solving abilities impaired Diagnostic impression: Major depressive disorder acute Polysubstance use disorder Alcohol use disorder Rule out borderline personality disorder Plan: Patient currently meets the criteria for hospitalization for her safety and to improve her coping skills stabilization and assertiveness training 2 patient still seems to be in her denial and remains very vague and superficial and the needs to be able to express her feelings and issues related to her recent overdose 3 maintain supportive care and safety precautions almost patient denies any actual suicidal ideations or plans at this time 4 patient has not given any consent to start any medications but mainly seems to be focused on her medical needs including treatment for UTI and is already on Flagyl 5 patient will also participate in on the pa activities individual milieu group OT RT PT and pharmacotherapy Approximately the stay would be 3-5 days
--- NOTE | 2022-03-08 22:45 | P.HPIM ---
History of Present Illness This is a pleasant 31 years old -Cypriot female With no significant past medical history was admitted to the mental health unit for signs and symptoms of depression and suicidal attempt with overdose with [place] about 20 tablets and Xanax, unknown number of pills. Medical consult was requested for routine medical management. She has a recent right patellar fracture on 02/12, status post intervention, currently she has external splint. Also she states she was recently diagnosed with vaginal infection, she still complaining of from discharge and itching. Her director [employer] started her on Flagyl and she wants to continue with it. I offered to consult or director [employer] but patient declined and wants to follow up with her own director [employer] upon discharge. No abdominal pain or nausea vomiting. No chest pain or dyspnea. No diarrhea or dysuria. No vomiting. She is hemodynamically stable. She smokes 1 pack every 2 days and she was counseled to quit and she agrees to the nicotine patch. She drinks red wine about 2 cups daily last drink was few days ago. Patient currently with no signs of withdrawal. Also denies illicit drugs. I offered to do test for the patient, she declined stating she is . Risks and benefits are explained for the patient including but not limited to the effect of drugs on infants. Hemoglobin A1c is 5.7%. Triglyceride 90, LDL is 93. TSH normal 0.6. Also patient was in the general medical floor 03/06-03/07. Patient has been evaluated by designated broker that admission and cleared her for discharge with the psych unit. Labs reviewed showing WBC 8.1, hemoglobin 11.1, platelet normal. BMP and liver enzymes are not elevated. Urinalysis normal. Drug screen is positive for opiates and benzodiazepines. Chest x-ray: No acute process. CT of the brain: No acute process. Review of Systems Review of systems CONSTITUTIONAL: No fever, no malaise, no fatigue. HEENT: No recent visual problems or hearing problems. Denied any sore throat. CARDIOVASCULAR: No orthopnea, PND, no palpitations, no syncope. PULMONARY: No shortness of breath, no cough, no hemoptysis. GASTROINTESTINAL: No diarrhea, no nausea, no vomiting, no abdominal pain. Normoactive bowel sounds. NEUROLOGICAL: No headaches, no weakness, no numbness. HEMATOLOGICAL: Denies any bleeding or petechiae. GENITOURINARY: Denies any burning micturition, frequency, or urgency. MUSCULOSKELETAL/RHEUMATOLOGICAL: Denies any joint pain, swelling, or any muscle pain. ENDOCRINE: Denies any polyuria or polydipsia. Past Medical History History of Any Multi-Drug Resistant Organisms: None Reported Past Surgical History: Orthopedic Surgery Additional Past Surgical History / Comment(s): recent orthopedic surgery pt has brace to right leg Smoking Status: Current every day smoker Medications and Allergies Home Medications Medication Instructions Recorded Confirmed Type Aspirin 325 mg PO DAILY 03/06/22 03/07/22 History HYDROcodone/APAP 10-325MG [[place] 1 tab PO Q4H PRN 03/06/22 03/07/22 History 10-325] Ibuprofen 800 mg PO Q8H 03/06/22 03/07/22 History Ondansetron [Zofran ODT] 4 mg PO Q8HR 03/06/22 03/07/22 History Sennosides/Docusate Sodium [Senna 1 each PO DAILY 03/06/22 03/07/22 History Plus 8.6-50 mg Tablet] metroNIDAZOLE [Flagyl] 500 mg PO BID 03/06/22 03/07/22 History Allergies Allergy/AdvReac Type Severity Reaction Status Date / Time No Known Allergies Allergy Verified 03/07/22 19:23 Physical Exam Vitals: Vital Signs Temp Pulse Pulse Resp BP BP Pulse Ox 03/08/22 20:28 105 H 16 120/81 03/08/22 16:50 88 16 123/76 03/08/22 08:34 98 16 123/81 96 03/08/22 06:44 98.3 F 87 14 116/68 GENERAL: The patient is alert and oriented x3, not in any acute distress. Well developed, well nourished. HEENT: Pupils are round and equally reacting to light. EOMI. No scleral icterus. No conjunctival pallor. Normocephalic, atraumatic. No pharyngeal erythema. No thyromegaly. CARDIOVASCULAR: S1 and S2 present. No murmurs, rubs, or gallops. PULMONARY: Chest is clear to auscultation, no wheezing or crackles. ABDOMEN: Soft, nontender, nondistended, normoactive bowel sounds. No palpable organomegaly. MUSCULOSKELETAL: No joint swelling or deformity. EXTREMITIES: No cyanosis, clubbing, or pedal edema. NEUROLOGICAL: Gross neurological examination did not reveal any focal deficits. SKIN: No rashes. no petechiae. Results Labs: Abnormal Lab Results - Last 24 Hours (Table) 03/07/22 Range/Units 06:34 HDL Cholesterol 39.20 L (40.00-60.00) mg/dL Thrombosis Risk Factor Assmnt - Choose All That Apply Any of the Below Risk Factors Present?: No Assessment and Plan Assessment: -Possible depression and suicidal ideation, and other psychiatric illnesses: Management as per sec primary team -Recent history of right patellar fracture as per patient. Status post splint. Follow-up with orthopedics as an outpatient. Pain management. Try to avoid narcotics. -Vaginal infection on Flagyl. Follow-up with [employer] as an outpatient. -Nicotine dependence, patient is counseled and she agrees to quit. She agrees to nicotine patch -Alcohol abuse, at-risk of alcohol withdrawal. Continue with thiamine and CIWA protocol Due to her recent surgery patient is at risk of DVT. Therefore we'll start the patient on subcu heparin twice a day We recommend Patient follow-up with her PCP in one week after discharge and patient was instructed with the same. Also patient was instructed to follow up with her orthopedic and director [employer] upon discharge within one to 2 weeks, she agrees to call and make appointments. She states she has the contact information. Thank you for consulting us. We will follow the patient on as needed basis. Please call for any further question
[2022-03-08] MEDS: diphenhydrAMINE 50 MG CAP PO PRN (22:58)
[2022-03-08] MEDS: metroNIDAZOLE 500 MG TAB PO SCH (23:00)
[2022-03-09 06:47] VITALS: BP 115/72; PULSE 80; RESP 18; TEMP 98
[2022-03-09] MEDS: ENOXAPARIN 40 MG/0.4 ML SYRINGE SQ SCH (08:49)
[2022-03-09] MEDS: metroNIDAZOLE 500 MG TAB PO SCH ×2 (08:50→20:39)
[2022-03-09] MEDS: THIAMINE 100 MG TAB PO SCH (08:50)
[2022-03-09] MEDS: MULTIVITAMINS, THERA 1 EACH TAB PO SCH (08:50)
[2022-03-09] MEDS: ASPIRIN 325 MG TAB PO SCH (08:50)
[2022-03-09] MEDS: FOLIC ACID 1 MG TAB PO SCH (08:50)
[2022-03-09] MEDS: chlordiazePOXIDE 25 MG CAP PO SCH (08:51)
[2022-03-09] MEDS: diazePAM 5 MG TAB PO SCH (08:51)
[2022-03-09] MEDS: NICOTINE 21MG/24HR PATCH TRANSDERM SCH (09:02)
[2022-03-09] MEDS: SERTRALINE 50 MG TAB PO SCH (09:27)
--- NOTE | 2022-03-09 09:30 | P.PN ---
Subjective Progress Note Date: 03/09/22 Principal diagnosis: Major depressive disorder unspecified Alcohol use disorder unspecified Rule out borderline personality disorder Subjective data: I really don't know why I took that overdose, I was not even drinking because they told me not to mix alcohol with my pain medications It's likely that the pain was so bad that I may have Popping the pills I really had a good day and everyone in the family told me how much they love me and that they like having me around I'm spending time here from [place] with my mother and between my grandmother I do tend to get depressed Like the time when I lost my job a few months ago Objective data: Patient the is casually groomed Patient was friendly and cooperative Patient is quite verbal and open about her issues and problems She denies any suicidal ideations or plans Patient admits to having issues with depression from time to time Patient does not recall any other incidents of impulsive acting out or suicide attempts Formal and operational judgment seems to be slightly improved Plan: The patient continues to meet the criteria for psychiatric hospitalization to improve her coping skills and for assertiveness training and supportive care 2 patient is agreeable to be started on Zoloft and started her initially at 50 mg daily to start with 3 patient is also open to outpatient counseling and supportive care and will have social work case manager arrange for appropriate referral sources at the time of discharge Continue milieu treatment Umer Deal M.D. 03/09/2022 Objective - Vital Signs Vital signs: Vital Signs Temp 98.0 F 03/09/22 06:45 Pulse 80 03/09/22 06:45 Resp 18 03/09/22 06:45 BP 115/72 03/09/22 06:45 Pulse Ox 97 03/09/22 06:45 - Labs Labs: Abnormal Lab Results - Last 24 Hours (Table) 03/07/22 Range/Units 06:34 HDL Cholesterol 39.20 L (40.00-60.00) mg/dL
[2022-03-09] MEDS: IBUPROFEN 400 MG TAB PO PRN ×2 (12:42→23:17)
[2022-03-09] MEDS: diphenhydrAMINE 50 MG CAP PO PRN (23:16)
[2022-03-10] MEDS: ENOXAPARIN 40 MG/0.4 ML SYRINGE SQ SCH (09:03)
[2022-03-10] MEDS: ASPIRIN 325 MG TAB PO SCH (09:04)
[2022-03-10] MEDS: metroNIDAZOLE 500 MG TAB PO SCH ×2 (09:04→20:12)
[2022-03-10] MEDS: THIAMINE 100 MG TAB PO SCH (09:06)
[2022-03-10] MEDS: MULTIVITAMINS, THERA 1 EACH TAB PO SCH (09:06)
[2022-03-10] MEDS: SERTRALINE 50 MG TAB PO SCH (09:06)
[2022-03-10] MEDS: NICOTINE 21MG/24HR PATCH TRANSDERM SCH (09:06)
[2022-03-10] MEDS: FOLIC ACID 1 MG TAB PO SCH (09:06)
[2022-03-10] MEDS: IBUPROFEN 400 MG TAB PO PRN ×3 (09:24→23:21)
--- NOTE | 2022-03-10 09:29 | P.PN ---
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 and I need to stay away from anything that may be addicting Objective data: Patient the is casually groomed Patient was friendly and cooperative Patient is quite verbal and open about her issues and problems She denies any suicidal ideations or plans Patient admits to having issues with depression from time to time Patient does not recall any other incidents of impulsive acting out or suicide attempts Formal and operational judgment seems to be slightly improved Plan: The patient continues to make improvement Seems to be maintaining a positive attitude and is forward thinking Has not reported any side effects from the Zoloft that was started at 50 mg daily patient is also open to outpatient counseling and supportive care and will have social media content manager arrange for appropriate referral sources at the time of discharge Continue milieu treatment Umer Deal M.D. 03/10/2022 Objective - Vital Signs Vital signs: Vital Signs Temp 98.0 F 03/09/22 06:45 Pulse 80 03/09/22 06:45 Resp 18 03/09/22 06:45 BP 115/72 03/09/22 06:45 Pulse Ox 97 03/09/22 06:45
[2022-03-11] MEDS: ENOXAPARIN 40 MG/0.4 ML SYRINGE SQ SCH (09:12)
[2022-03-11] MEDS: ASPIRIN 325 MG TAB PO SCH (09:13)
[2022-03-11] MEDS: NICOTINE 21MG/24HR PATCH TRANSDERM SCH (09:13)
[2022-03-11] MEDS: THIAMINE 100 MG TAB PO SCH (09:13)
[2022-03-11] MEDS: SERTRALINE 50 MG TAB PO SCH (09:13)
[2022-03-11] MEDS: MULTIVITAMINS, THERA 1 EACH TAB PO SCH (09:13)
[2022-03-11] MEDS: metroNIDAZOLE 500 MG TAB PO SCH (09:13)
[2022-03-11] MEDS: FOLIC ACID 1 MG TAB PO SCH (09:13)
--- NOTE | 2022-03-11 09:14 | P.PN ---
Subjective Progress Note Date: 03/11/22 Principal diagnosis: Major depressive disorder unspecified Alcohol use disorder unspecified Rule out borderline personality disorder Subjective data: I am feeling better When I leave from here I would be going to my aunt's house What about my Ativan and Librium? Objective data: Patient the is casually groomed Patient was friendly and cooperative Patient is quite verbal and open about her issues and problems She denies any suicidal ideations or plans Patient admits to having issues with depression from time to time Patient does not recall any other incidents of impulsive acting out or suicide attempts Formal and operational judgment seems to be improved Plan: The patient continues to make improvement Seems to be maintaining a positive attitude and is forward thinking Still remains somewhat drug seeking and discussed her addictive personality Patient otherwise has improved in her mentation and her coping skills Is not suicidal or homicidal and is a candidate for outpatient management We'll discharge home today with outpatient follow-up with local mental health services and psychiatrist for follow-up. Umer Deal M.D. 03/11/2022 Objective - Vital Signs Vital signs: Vital Signs Temp 98.0 F 03/09/22 06:45 Pulse 80 03/09/22 06:45 Resp 18 03/09/22 06:45 BP 115/72 03/09/22 06:45 Pulse Ox 97 03/09/22 06:45
[2022-03-11] MEDS: IBUPROFEN 400 MG TAB PO PRN (09:22)
--- NOTE | 2022-03-11 10:14 | P.DS ---
Providers Date of admission: 03/07/22 13:37 Expected date of discharge: 03/11/22 Attending physician: Fam Altman MD Consults: 03/07/22 13:42 Consult Physician Routine Consulting Provider: Deacon Moya Consult Reason/Comments: medical management Do you want consulting provider notified?: Already Contacted Primary care physician: Stated None Hospital Course: This is a psychiatric evaluation on this 31-year-old female was hospitalized after an overdose of 20 tablets of [place] and unknown amount of Xanax Patient reports that she does not know as to why she took it and states that she was having a good day She states that she is visiting here from [place] to attend a cousin's marriage and is now stuck here away from home Patient states that she has no idea as to why she did it She states that she is in a relationship at this time and is single She states that she drinks a bottle of wine every day She also recently had a fall fracturing her right patella and is in a splint 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 Past history personal and social history Patient reports that she has a history of previous hospitalization in 2013 She states that she had a reason for that overdose when she had a argument with her mother at that time She states that she admits some counseling and treatment for a while but she did not feel that she needed any psychiatric help and has not had any follow-up or treatment since 2013 She is currently single and works as a waiter/waitress room service She stated that she is in a relationship at this time She denies having any children She states that her relationship with her family is superficial Hospital course After hospitalization patient received a routine physical examination where no acute physical issues except for her injury to her right lower extremity which was addressed and monitored by the metal numerical control programmer Please refer to his notes for further details for medication management and pain management Psychiatric problems included depression anxiety psychomotor agitation and drug- seeking behavior. Patient the did not seem to be able to give any specific reason for overdose and the further interviewing seemed to be point more towards an impulsive addictive personality Patient appears to have taken the pain pills impulsively as she had a addiction of 1 bottle of wine every night which he had stopped recently Patient still remains somewhat drug-seeking and the question about wanting benzodiazepines even though she had been abstinent from alcohol for more than 10 days and was already detoxed. Therapy is focused on providing supportive care improving her coping abilities with a multimodal treatment patient responded favorably where at the time of discharge patient was not suicidal or homicidal patient has some more insight about her addiction and need for follow-up in treatment and to avoid medications that will drive her back into dependency and depression anxiety At the time of discharge patient was coherent and relevant her thought processes are goal-directed sequential and logical patient did not express any thoughts of wanting to herself or others patient is motivated for outpatient follow-up and treatment. She also has a appointment for follow-up with her orthopedic surgeon Psychotropic medications are Zoloft 50 mg daily and nicotine patch 21 mg daily Patient will follow up with local mental services and a psychiatrist for further follow-up and care Umer Toyin Ha 03/11/2022 Patient Condition at Discharge: Good Plan - Discharge Summary Discharge Rx Participant: No New Discharge Prescriptions: New Nicotine 21Mg/24Hr Patch [Habitrol] 1 patch TRANSDERM DAILY 7 Days patch Enoxaparin [Lovenox] 40 mg SQ DAILY each Sertraline [Zoloft] 50 mg PO DAILY 30 Days tab Continue Ibuprofen 800 mg PO Q8H Aspirin 325 mg PO DAILY metroNIDAZOLE [Flagyl] 500 mg PO BID 7 Days tab Discontinued HYDROcodone/APAP 10-325MG [[place] 10-325] 1 tab PO Q4H PRN PRN Reason: Pain Ondansetron [Zofran ODT] 4 mg PO Q8HR Sennosides/Docusate Sodium [Senna Plus 8.6-50 mg Tablet] 1 each PO DAILY Discharge Medication List Aspirin 325 mg PO DAILY 03/06/22 [History] Ibuprofen 800 mg PO Q8H 03/06/22 [History] Enoxaparin [Lovenox] 40 mg SQ DAILY each 03/11/22 [Rx] Nicotine 21Mg/24Hr Patch [Habitrol] 1 patch TRANSDERM DAILY 7 Days patch 03/11/22 [Rx] Sertraline [Zoloft] 50 mg PO DAILY 30 Days tab 03/11/22 [Rx] metroNIDAZOLE [Flagyl] 500 mg PO BID 7 Days tab 03/11/22 [Rx] Activity/Diet/Wound Care/Special Instructions: Activity and diet as tolerated. Avoid the use of street drugs and alcohol. Take all medications as prescribed. When you are in need of refills on your medications please contact your medical provider and/or outpatient psychiatrist to have this done. Please go to scheduled outpatient appointment for aftercare treatment. If symptoms return or become worse, call the crisis line at and/or go to the nearest emergency room for evaluation Discharge Disposition: HOME SELF-CARE
== END 2022-03-11 13:41 | disposition home or self-care (01) | DRG 881 ==
LOC: 3MHU 13:37
PROVIDERS: ADMIT Psychiatry & Neurology Psychiatry; ATTEND Psychiatry & Neurology Psychiatry
DX: F32.9 Major depressive disorder, single episode, unspecified (principal); F10.10 Alcohol abuse, uncomplicated; F19.10 Other psychoactive substance abuse, uncomplicated; F41.9 Anxiety disorder, unspecified; N76.0 Acute vaginitis; S82.001D Unspecified fracture of right patella, subsequent encounter for closed fracture with routine healing; F17.210 Nicotine dependence, cigarettes, uncomplicated; Z71.6 Tobacco abuse counseling; Z79.82 Long term (current) use of aspirin; Z79.1 Long term (current) use of non-steroidal anti-inflammatories (NSAID); Z79.899 Other long term (current) drug therapy; Z91.51 Personal history of suicidal behavior; Z76.5 Malingerer [conscious simulation]; W19.XXXD Unspecified fall, subsequent encounter
CPT/HCPCS: 80061; 83036; 84443

== ENCOUNTER 2022-03-13 12:04 | Emergency (ER) | payer OTHER ==
[2022-03-13 12:24] VITALS: BP 114/73; PULSE 120; RESP 18; TEMP 98.9
[2022-03-13] MEDS ORDERED: HYDROmorphone 0.5 MG/0.5 ML SYRINGE IM STA (12:44)
--- NOTE | 2022-03-13 12:52 | ED ---
General Adult HPI - General Chief complaint: Recheck/Abnormal Lab/Rx Stated complaint: R Knee Pain Time Seen by Provider: 03/13/22 12:20 Source: patient, RN notes reviewed, old records reviewed Mode of arrival: wheelchair Limitations: no limitations - History of Present Illness Initial comments: This is a 31-year-old female who presents emergency Department asking for pain medicines for her postoperative pain on her right knee. Patient states that she can't get her prescription filled from her surgeon. Patient also overdosed on pain medications post surgery a few days ago and now comes in for more pain medications because she does not have any left at home. Patient denies any increased swelling patient denies any increased pain she states is the same pain she has been having. Patient denies any discoloration. Patient has history quit pain medication. - Related Data Home Medications Medication Instructions Recorded Confirmed Aspirin 325 mg PO DAILY 03/06/22 03/07/22 Ibuprofen 800 mg PO Q8H 03/06/22 03/07/22 Previous Rx's Medication Instructions Recorded Enoxaparin [Lovenox] 40 mg SQ DAILY each 03/11/22 Nicotine 21Mg/24Hr Patch [Habitrol] 1 patch TRANSDERM DAILY 7 Days 03/11/22 patch Sertraline [Zoloft] 50 mg PO DAILY 30 Days tab 03/11/22 metroNIDAZOLE [Flagyl] 500 mg PO BID 7 Days tab 03/11/22 Allergies Allergy/AdvReac Type Severity Reaction Status Date / Time No Known Allergies Allergy Verified 03/13/22 12:24 Review of Systems ROS Statement: Those systems with pertinent positive or pertinent negative responses have been documented in the HPI. ROS Other: All systems not noted in ROS Statement are negative. Past Medical History History of Any Multi-Drug Resistant Organisms: None Reported Past Surgical History: Orthopedic Surgery Additional Past Surgical History / Comment(s): recent orthopedic surgery pt has brace to right leg Past Psychological History: No Psychological Hx Reported Smoking Status: Current every day smoker Past Alcohol Use History: None Reported Past Drug Use History: None Reported General Exam - General Exam Comments Initial Comments: GENERAL Patient is well-developed and well-nourished. Patient is in mild distress. EYES Patient's pupils are equal and round. Extraocular motion is intact SKIN Unremarkable NEURO The patient is alert and oriented 3 PYSCH Patient has normal interpersonal interactions. MUSCULOSKELETAL Patient has good pulses in the right leg there is no swelling to the leg there is no erythema. Limitations: no limitations Course Vital Signs 03/13/22 12:19 Temperature 98.9 F Pulse Rate 120 H Respiratory 18 Rate Blood Pressure 114/73 O2 Sat by Pulse 98 Oximetry Medical Decision Making - Medical Decision Making Patient wants pain medications but because she overdosed I will not give her any pain medications to go home and told to follow-up with her surgeon or primary medical care doctor. Patient didn't make indication that she might come back every day for pain shots. I told her that was inappropriate and that we would stop giving her pain medications. Disposition Clinical Impression: History of drug overdose, Postoperative pain Disposition: HOME SELF-CARE Condition: Good Instructions (If sedation given, give patient instructions): Pain Management After Surgery (DC) Is patient prescribed a controlled substance at d/c from ED?: No Referrals: None,Stated [Primary Care Provider] - 1-2 days Time of Disposition: 12:47
== END 2022-03-13 13:03 | disposition home or self-care (01) ==
LOC: EC 12:04
DX: G89.18 Other acute postprocedural pain (principal); T65.91XA Toxic effect of unspecified substance, accidental (unintentional), initial encounter; F17.200 Nicotine dependence, unspecified, uncomplicated
CPT/HCPCS: 99283; 96372; J1170